=== PATIENT | female | born 1965 | race Caucasian/White ===

== ENCOUNTER → 2016-05-21 | Outpatient (CLI) | payer MEDICAID ==
[~2016-05-21] MED LIST: ALPR2TAB2 PO; ENAL20TA PO; GADOBUTROL 7.5 MMOL/7.5 ML VIAL ONE; GLIM2TAB2 PO; METF10002 PO
== END | disposition home or self-care (01) ==
LOC: CFH 08:16
PROVIDERS: ATTEND Psychiatry & Neurology Neurology
DX: H46.9 Unspecified optic neuritis (principal)
CPT/HCPCS: 70543; A9585